=== PATIENT | female | born 1995 | race Native Hawaiian/Other Pacific Islander ===

== ENCOUNTER 2018-04-04 15:06 | Outpatient (CLI) | payer OTHER | END 2018-04-04 20:16 | disposition home or self-care (01) | LOC: RAD 15:06 | DX: M54.42 Lumbago with sciatica, left side (principal); M54.6 Pain in thoracic spine ==

== ENCOUNTER 2019-07-18 11:04 | Emergency (ER) | payer OTHER ==
[~2019-07-18] VITALS: Ht 160 cm; Wt 63.5 kg
[2019-07-18 11:30] VITALS: BP 109/57; TEMP 98.1
== END 2019-07-18 12:13 | disposition home or self-care (01) ==
LOC: ED 11:04
DX: R10.84 Generalized abdominal pain (principal); R07.89 Other chest pain
CPT/HCPCS: 99282; 99283

== ENCOUNTER 2022-01-14 17:56 | Emergency (ER) | payer OTHER ==
[~2022-01-14] VITALS: Ht 160 cm; Wt 56.7 kg
[2022-01-14 18:15] VITALS: TEMP 97.5
[2022-01-14 19:35] VITALS: BP 124/80
== END 2022-01-14 19:35 | disposition home or self-care (01) ==
LOC: ED 17:56
DX: S71.132A Puncture wound without foreign body, left thigh, initial encounter (principal); S71.112A Laceration without foreign body, left thigh, initial encounter; W01.198A Fall on same level from slipping, tripping and stumbling with subsequent striking against other object, initial encounter; Y92.098 Other place in other non-institutional residence as the place of occurrence of the external cause
CPT/HCPCS: 90471; 90715; 96372; 99283; J0696